=== PATIENT | female | born 2000 | race Caucasian/White ===

== ENCOUNTER 2019-06-16 01:15 | Emergency (ER) | payer MEDICAID ==
[~2019-06-16] VITALS: Ht 157.5 cm; Wt 93.0 kg
[2019-06-16 01:50] VITALS: BP 120/73
== END 2019-06-16 05:47 | disposition left against medical advice (07) ==
LOC: ER 01:15
DX: Z53.21 Procedure and treatment not carried out due to patient leaving prior to being seen by health care provider (principal)